=== PATIENT | female | born 1935 | race Caucasian/White ===

== ENCOUNTER 2018-02-14 08:02 | Outpatient (CLI) | payer MEDICARE, OTHER, SELFPAY ==
[2018-02-14] VITALS (9 sets, daily range): BP systolic 116–188; BP diastolic 61–104; PULSE 62–88; RESP 15–22; TEMP 36.2; O2SAT 98–100
--- NOTE | 2018-02-14 08:08 | DI.RAD.S_ITS ---
PROCEDURE: PAIN C/T INTERLAMINAR INJECT INDICATIONS: Thoracic stenosis status post T10 and T11 fractures FINDINGS: Fluoroscopic spot filming was performed to verify placement of spinal needles at the T11 midline level, as labeled on the films. Appropriate location(s) of the needle tip(s) was confirmed by injection of iodinated contrast. IMPRESSION: Successful T10-T11 interlaminar space needle tip localization for epidural steroid injection. Dictated by: Sarthak Ferguson M.D. on 02/14/2018 at 10:28 Approved by: Sarthak Ferguson M.D. on 02/14/2018 at 10:36
[2018-02-14] MEDS: MIDAZOLAM 5 MG/5 ML VIAL IV (09:21)
[2018-02-14] MEDS: LIDOCAINE 1% 20 ML INJ 5 ML INJ (09:30)
[2018-02-14] MEDS: DEXAMETHASONE 10 MG/ML VIAL 30 MG INJ (09:30)
[2018-02-14] MEDS: IOPAMIDOL 15 ML VIAL 3 ML INJ (09:30)
--- NOTE | 2018-02-14 09:36 | PM.PROC.1 ---
Procedures Date/Time Date of procedure: 02/14/18 Time of procedure: 09:36 General Procedure description: Preop diagnosis: Thoracic stenosis with HNP Postprocedure diagnosis: Thoracic stenosis with HNP Physician: Jonathan Briggs D.O. Indications: Derrick is referred by for treatment of thoracic DDD/DJD with radiculopathy Description of procedure: Fluoroscopic guided, contrast controlled T8-9 translaminar epidural steroid injection with conscious sedation. Following denial of allergy review potential side effects and complications, including, but not necessarily limited to, infection, allergic reaction, local tissue breakdown, temporary as well as permanent nerve injury, stroke, paralysis and possible , the patient indicated that they understood and agreed to proceed. An informed consent document was signed by the patient, witnessed by the nurse, and placed in the patient's chart. Additionally other treatment options including modalities, medications and physical therapy were reviewed with the patient. After review of previous anaesthesic history and IV conscious sedation the patient was deemed safe to proceed with todays procedure with IV conscious sedation as ASA class II designation. Safety time-out was performed to confirm patient ID, procedure to be performed and site of procedure. IV sedation was accomplished with a combination of 1mg of Versed administered by the RN after DO order, titrated to patient comfort during the course of the procedure while the patient remained responsive to all verbal commands In the prone position, following sterile prep and drape of the thoracic region the T8-9 translaminar space was identified fluoroscopically. The skin was anesthetized via 25 gauge 20 mm sheath with 1% lidocaine solution. At this point a 20 gauge epidural needle was atraumatically introduced and advanced under fluoroscopic guidance into the region of the T8-9 translaminar space depth was confirmed on lateral view. Radiographic data, including multiple fluoroscopic views of the thoracic spine, reveals spinal needle at the T8-9 translaminar space. Lateral views then showed the placement of the needle in the epidural space. Subsequent view show contrast material flowing superiorly and inferiorly in the epidural space. No vascular or intrathecal uptake is observed. At this point using loss of resistance technique with saline and the epidural space was entered. This was confirmed followed negative aspiration and injection of approximately 1.5 cc of Isovue 200 showed excellent epidural flow without vascular or intrathecal uptake. At this point, 1 cc of 1% lidocaine solution was admitted as a test dose and the patient was observed for an appropriate period of time without signs or symptoms of complications, including abdominal pain, shortness of breath, bilateral upper and lower extremity weakness, nausea and vomiting, prior to steroid injection. Subsequently, 3 cc or 30 mg of dexamethasone was then injected without incident. The patient was then transferred to the recovery area with their observed for an appropriate time after the injection. Patient reported a VAS score of 7 prior to the procedure and postprocedure VAS of 2. Total fluoroscopy time: 56.3 sec Total conscious sedation time: 24 min Jonathan Briggs D.O. Complications: none
== END 2018-02-14 10:26 | disposition home or self-care (01) ==
PROVIDERS: PCP Internal Medicine; Visit Provider Physical Medicine & Rehabilitation
DX: M51.24 Other intervertebral disc displacement, thoracic region (principal); M48.04 Spinal stenosis, thoracic region; S22.080S Wedge compression fracture of T11-T12 vertebra, sequela
CPT/HCPCS: 62321; 99152; J1100; J2250